=== PATIENT | female | born 1945 | race Two or more races ===

== ENCOUNTER 2022-03-25 18:31 | Emergency (ER) | payer OTHER ==
[~2022-03-25] VITALS: Ht 162.6 cm; Wt 54.4 kg
[2022-03-25 19:29] LABS: Basophils # (auto) 0.1 10 ^3/uL (0-0.2); Basophils % (auto) 1.2 % (0.0-2.0); Eosinophils # (auto) 0.1 10 ^3/uL (0-0.8); Eosinophils % (auto) 2.1 % (0.0-7.0); Hematocrit 34.8 % (36.0-46.0); Hemoglobin 11.7 g/dL (12.2-16.2); Lymphocytes # (auto) 1.8 10 ^3/uL (0.4-5.4); Lymphocytes % (auto) 30.2 % (10.0-50.0); Mean Corpuscular Hemoglobin 28.9 pg (28.0-32.0); Mean Corpuscular Hgb Conc. 33.6 g/dL (32.0-36.0); Mean Corpuscular Volume 85.9 fL (80.0-100.0); Monocytes # (auto) 0.3 10 ^3/uL (0-1.3); Monocytes % (auto) 5.6 % (0.0-12.0); Neutrophils # (auto) 3.6 10 ^3/uL (1.6-8.6); Neutrophils % (auto) 60.9 % (37.0-80.0); Nucleated Red Blood Cells % 0.1 %; Red Blood Cells 4.06 10^6/uL (4.0-5.20); Red Cell Distribution Width 16.6 % (11.8-14.3); White Blood Cell 5.9 10^3/uL (4.4-10.8)
[2022-03-25 19:45] LABS: Urine Bacteria FEW /hpf (None Seen); Urine Blood Negative /uL (Negative); Urine Hyaline Cast MOD /lpf (0 - 2); Urine Specific Gravity 1.009 (1.001-1.035); Urine WBC 4 /hpf (0 - 5)
[2022-03-25 19:52] LABS: Calcium 9.6 mg/dL (8.5-10.1); Potassium 3.8 mmol/L (3.5-5.1)
[2022-03-25 19:55] LABS: BUN/Creatinine Ratio 18.2; Bilirubin, Total 0.8 mg/dL (0.2-1.0); Total Protein 7.6 g/dL (6.4-8.2)
[2022-03-25] MEDS ORDERED: NITR-87 PO (21:16)
[2022-03-25 21:36] VITALS: BP 102/72
== END 2022-03-25 21:57 | disposition home or self-care (01) ==
LOC: EDBD 18:34 → ER 18:34
DX: N39.0 Urinary tract infection, site not specified (principal); E78.5 Hyperlipidemia, unspecified; I10 Essential (primary) hypertension
CPT/HCPCS: 36415; 74176; 80053; 81001; 85025; 93005

== ENCOUNTER 2023-04-01 22:02 | Emergency (ER) | payer MEDICARE, OTHER ==
[~2023-04-01] VITALS: Ht 162.6 cm; Wt 55.0 kg
[~2023-04-01 22:02] MED LIST: NITR-87 PO
[2023-04-02] MEDS ORDERED: methylPREDNISolone SOD SUCC 125 MG/2 ML VL IM ONE (02:00)
[2023-04-02] MEDS ORDERED: PRED30TA4 PO (02:01)
[2023-04-02 02:23] VITALS: BP 122/78
== END 2023-04-02 02:25 | disposition home or self-care (01) ==
LOC: ER 22:08
DX: M10.9 Gout, unspecified (principal); M79.642 Pain in left hand; E78.5 Hyperlipidemia, unspecified; I10 Essential (primary) hypertension; Z88.8 Allergy status to other drugs, medicaments and biological substances
CPT/HCPCS: 96372; 99283; J2930

== ENCOUNTER 2023-05-23 19:51 | Emergency (ER) | payer MEDICARE, OTHER ==
[~2023-05-23] VITALS: Ht 162.6 cm; Wt 53.0 kg
[~2023-05-23 19:51] MED LIST changes: +PRED30TA4 PO
[2023-05-23 20:25] LABS: Basophils # (auto) 0.1 10 ^3/uL (0-0.2); Basophils % (auto) 1.5 % (0.0-2.0); Eosinophils # (auto) 0.1 10 ^3/uL (0-0.8); Eosinophils % (auto) 2.3 % (0.0-7.0); Hematocrit 35.9 % (36.0-46.0); Hemoglobin 11.1 g/dL (12.2-16.2); Lymphocytes # (auto) 1.2 10 ^3/uL (0.4-5.4); Lymphocytes % (auto) 24.7 % (10.0-50.0); Mean Corpuscular Volume 90.3 fL (80.0-100.0); Monocytes # (auto) 0.4 10 ^3/uL (0-1.3); Monocytes % (auto) 9.3 % (0.0-12.0); Neutrophils # (auto) 2.9 10 ^3/uL (1.6-8.6); Neutrophils % (auto) 62.2 % (37.0-80.0); Nucleated Red Blood Cells % 0.3 %; Red Blood Cells 3.98 10^6/uL (4.0-5.20); Red Cell Distribution Width 18.4 % (11.8-14.3); White Blood Cell 4.7 10^3/uL (4.4-10.8)
[2023-05-23 20:40] LABS: INR 3.15 (0.9-1.15); Prothrombin Time 30.7 sec (9.3-11.8)
[2023-05-23 20:48] LABS: Albumin 3.8 g/dL (3.4-5.0); Calcium 9.2 mg/dL (8.5-10.1); Magnesium 2.7 mg/dL (1.6-2.6); Potassium 4.1 mmol/L (3.5-5.1)
[2023-05-23 21:04] LABS: BUN/Creatinine Ratio 19.9 (10.0-20.0); Bilirubin, Total 0.4 mg/dL (0.2-1.0); Total Protein 6.7 g/dL (6.4-8.2)
[2023-05-23] MEDS ORDERED: ACETAMINOPHEN 325 MG TAB PO ONE (22:45)
[2023-05-23] MEDS ORDERED: SODIUM CHLORIDE 0.9% 1,000 ML IV ONE (22:45)
[2023-05-23] MEDS ORDERED: PANTOPRAZOLE 40 MG/10 ML VIAL INJ IV ONE (22:45)
[2023-05-23] MEDS ORDERED: ASPirin 81 mg TAB PO ONE (22:45)
[2023-05-24 00:25] VITALS: BP 140/77; TEMP 97.6
[2023-05-24 00:39] VITALS: PULSE 81; RESP 18; O2SAT 97
[2023-05-24] MEDS ORDERED: NITROGLYCERIN 0.4 MG SL TAB SL ONE (10:00)
== END 2023-05-24 00:48 | disposition home or self-care (01) ==
LOC: ER 19:51
DX: R07.89 Other chest pain (principal); I10 Essential (primary) hypertension; E78.5 Hyperlipidemia, unspecified; Z88.8 Allergy status to other drugs, medicaments and biological substances
CPT/HCPCS: 36415; 71045; 80053; 83735; 83880; 84484; 85025; 85610; 85730; 93005; 96361; 96374; 99285; C9113; J7030

== ENCOUNTER 2023-07-11 13:26 | Inpatient (IN) | payer MEDICARE, OTHER ==
[~2023-07-11] VITALS: Ht 162.6 cm; Wt 59.9 kg
[2023-07-11 13:50] LABS: Basophils # (auto) 0.1 10 ^3/uL (0-0.2); Basophils % (auto) 0.5 % (0.0-2.0); Eosinophils # (auto) 0 10 ^3/uL (0-0.8); Eosinophils % (auto) 0.2 % (0.0-7.0); Hemoglobin 11.7 g/dL (12.2-16.2); Lymphocytes # (auto) 1.6 10 ^3/uL (0.4-5.4); Lymphocytes % (auto) 13.9 % (10.0-50.0); Mean Corpuscular Hemoglobin 28.2 pg (28.0-32.0); Mean Corpuscular Hgb Conc. 31.5 g/dL (32.0-36.0); Mean Corpuscular Volume 89.6 fL (80.0-100.0); Monocytes # (auto) 0.6 10 ^3/uL (0-1.3); Monocytes % (auto) 5.4 % (0.0-12.0); Neutrophils # (auto) 9.3 10 ^3/uL (1.6-8.6); Nucleated Red Blood Cells % 0.1 %; Red Blood Cells 4.13 10^6/uL (4.0-5.20); Red Cell Distribution Width 18.1 % (11.8-14.3); White Blood Cell 11.6 10^3/uL (4.4-10.8)
[2023-07-11 13:55] VITALS: PULSE 96; RESP 16; O2SAT 97
[2023-07-11 13:59] LABS: Carbon Dioxide 26 mmol/L (20-30)
[2023-07-11 14:00] LABS: Calcium 10.1 mg/dL (8.5-10.1)
[2023-07-11 14:04] LABS: Glucose 105 mg/dL (74-106)
[2023-07-11 14:05] LABS: Alkaline Phosphatase 85 U/L (46-116); BUN/Creatinine Ratio 22.9 (10.0-20.0); Blood Urea Nitrogen 25 mg/dL (9-23)
[2023-07-11 14:06] LABS: Alanine Aminotransferase 21 U/L (7-40); Albumin 4.2 g/dL (3.2-4.8); Aspartate Aminotransferase 21 U/L (13-40)
[2023-07-11 14:07] LABS: Bilirubin, Total 0.7 mg/dL (0.2-1.0); Total Protein 6.7 g/dL (5.7-8.2)
[2023-07-11 14:55] LABS: Anion Gap 8 (5-15); Chloride 107 mmol/L (98-107); Potassium 4.4 mmol/L (3.5-5.1); Sodium 141 mmol/L (136-145)
[2023-07-11] MEDS ORDERED: ASPirin 81 mg TAB PO ONE (18:30)
[2023-07-11 18:45] LABS: Urine Bacteria FEW /hpf (None Seen); Urine Blood Negative /uL (Negative); Urine Clarity HAZY (Clear); Urine Color Yellow (Yellow); Urine Mucus FEW (None Seen); Urine Protein, UAD TRACE (Negative); Urine Urobilinogen Normal (Negative); Urine WBC 41 /hpf (0 - 5); Urine pH 5.5 (5.0-8.0)
[2023-07-11] MEDS ORDERED: NITROGLYCERIN 0.4 MG SL TAB SL PRN (19:00)
[2023-07-11] MEDS ORDERED: ACETAMINOPHEN 325 MG TAB PO PRN (19:00)
[2023-07-11] MEDS ORDERED: MORPHINE SULFATE INJ 2 MG/ml SYRG IV PRN (19:00)
[2023-07-11] MEDS ORDERED: ONDANSETRON HCL 4 MG/2 ML VIAL IV PRN (19:00)
[2023-07-11] MEDS ORDERED: HYDROcodone-ACET 5/325MG TAB PO PRN (19:00)
[2023-07-11] MEDS ORDERED: cefTRIAXone 1GM/50ML D5W 50 ML IV ONE (19:00)
[2023-07-11] MEDS ORDERED: FUR20T PO (19:19)
[2023-07-11] MEDS ORDERED: ROSU10TA64 PO (19:19)
[2023-07-11] MEDS ORDERED: WARF-110 PO (19:19)
[2023-07-11] MEDS ORDERED: MET50T PO (19:19)
[2023-07-11] MEDS ORDERED: ALLO100T PO (19:19)
[2023-07-11] MEDS ORDERED: TIOT17SP INH (19:19)
[2023-07-11] MEDS ORDERED: HYDR-4297 PO (19:19)
[2023-07-11] MEDS ORDERED: LISI20TA56 PO (19:19)
[2023-07-11 19:44] VITALS: BP 143/95; PULSE 91; RESP 16; O2SAT 97
[2023-07-11 20:05] VITALS: PULSE 90; RESP 17; O2SAT 97
[2023-07-11 21:15] LABS: Partial Thromboplastin Time 35.5 SEC (24.5-34.5); Prothrombin Time 49.4 sec (9.3-11.8)
[2023-07-11 21:38] LABS: INR 5.24 (0.9-1.15)
[2023-07-11 22:00] VITALS: BP 123/79; PULSE 90; RESP 18; TEMP 98.2; O2SAT 95
[2023-07-11] MEDS: hydrALAZINE HCL 25 MG TAB PO SCH (22:33)
[2023-07-11] MEDS: SODIUM CHLOR 0.9% PF (SALINE LOCK) 10ML VIAL/SYR IV SCH (22:42)
[2023-07-11 23:52] VITALS: O2SAT 97
[2023-07-12] VITALS (12 sets, daily range): BP systolic 100–133; BP diastolic 67–87; PULSE 73–105; RESP 16–18; TEMP 97.4–98.2; O2SAT 93–100
[2023-07-12] MEDS: hydrALAZINE HCL 25 MG TAB PO SCH ×3 (06:03→21:23)
[2023-07-12] MEDS: SODIUM CHLOR 0.9% PF (SALINE LOCK) 10ML VIAL/SYR IV SCH ×3 (06:03→21:22)
[2023-07-12 06:42] LABS: Basophils # (auto) 0.1 10 ^3/uL (0-0.2); Basophils % (auto) 0.9 % (0.0-2.0); Eosinophils # (auto) 0.1 10 ^3/uL (0-0.8); Eosinophils % (auto) 1.6 % (0.0-7.0); Hematocrit 35.9 % (36.0-46.0); Hemoglobin 11.4 g/dL (12.2-16.2); Lymphocytes % (auto) 27.8 % (10.0-50.0); Mean Corpuscular Hemoglobin 28.9 pg (28.0-32.0); Mean Corpuscular Hgb Conc. 31.6 g/dL (32.0-36.0); Mean Corpuscular Volume 91.4 fL (80.0-100.0); Monocytes # (auto) 0.6 10 ^3/uL (0-1.3); Monocytes % (auto) 8.3 % (0.0-12.0); Neutrophils # (auto) 4.4 10 ^3/uL (1.6-8.6); Neutrophils % (auto) 61.4 % (37.0-80.0); Nucleated Red Blood Cells % 0.1 %; Red Blood Cells 3.93 10^6/uL (4.0-5.20); Red Cell Distribution Width 18.2 % (11.8-14.3); White Blood Cell 7.2 10^3/uL (4.4-10.8)
[2023-07-12 06:58] LABS: Alanine Aminotransferase 18 U/L (7-40); Albumin 3.7 g/dL (3.2-4.8); Alkaline Phosphatase 85 U/L (46-116); Anion Gap 8 (5-15); Aspartate Aminotransferase 22 U/L (13-40); BUN/Creatinine Ratio 12.4 (10.0-20.0); Blood Urea Nitrogen 15 mg/dL (9-23); Calcium 9.6 mg/dL (8.7-10.4); Carbon Dioxide 25 mmol/L (20-30); Chloride 108 mmol/L (98-107); Glucose 81 mg/dL (74-106); Potassium 4.2 mmol/L (3.5-5.1); Sodium 141 mmol/L (136-145)
[2023-07-12 06:59] LABS: Bilirubin, Total 0.5 mg/dL (0.2-1.0); Total Protein 6.4 g/dL (5.7-8.2)
[2023-07-12 07:05] LABS: Partial Thromboplastin Time 35.6 SEC (24.5-34.5); Prothrombin Time 42.9 sec (9.3-11.8)
[2023-07-12 07:07] LABS: INR 4.51 (0.9-1.15)
[2023-07-12 09:39] LABS: Triglycerides 91 mg/dL (< 150)
[2023-07-12] MEDS: LISINOPRIL 20 MG TAB PO SCH (09:39)
[2023-07-12] MEDS: ASPirin 81 mg TAB PO SCH (09:39)
[2023-07-12 09:40] LABS: LDL Cholesterol 47 mg/dL (< 100)
[2023-07-12] MEDS: METOPROLOL TARTRATE 50 MG TAB PO SCH (09:40)
[2023-07-12] MEDS: ALLOPURINOL 100 MG TAB PO SCH (09:40)
[2023-07-12] MEDS: FUROSEMIDE 20 MG TAB PO SCH (09:40)
[2023-07-12 09:41] LABS: Cholesterol 131 mg/dL (< 200); HDL Cholesterol 61 mg/dL (40-59)
[2023-07-12] MEDS: IPRATROPIUM BROM 0.5 MG/2.5ML INH SOL NEB SCH ×2 (12:19→18:59)
[2023-07-12] MEDS: ATORVASTATIN 20 MG TAB PO SCH (21:22)
[2023-07-13] VITALS (16 sets, daily range): BP systolic 96–136; BP diastolic 55–86; PULSE 60–101; RESP 14–20; TEMP 97–98.4; O2SAT 93–100
[2023-07-13] MEDS: IPRATROPIUM BROM 0.5 MG/2.5ML INH SOL NEB SCH ×5 (00:20→23:43)
[2023-07-13 05:28] LABS: INR 2.65 (0.9-1.15); Prothrombin Time 26.1 sec (9.3-11.8)
[2023-07-13] MEDS: hydrALAZINE HCL 25 MG TAB PO SCH ×3 (05:34→21:40)
[2023-07-13] MEDS: SODIUM CHLOR 0.9% PF (SALINE LOCK) 10ML VIAL/SYR IV SCH ×3 (05:34→21:38)
[2023-07-13] MEDS: ALLOPURINOL 100 MG TAB PO SCH (09:49)
[2023-07-13] MEDS: FUROSEMIDE 20 MG TAB PO SCH (09:49)
[2023-07-13] MEDS: ASPirin 81 mg TAB PO SCH (09:49)
[2023-07-13] MEDS: LISINOPRIL 20 MG TAB PO SCH (09:51)
[2023-07-13] MEDS: METOPROLOL TARTRATE 50 MG TAB PO SCH (09:51)
[2023-07-13] MEDS ORDERED: WARFARIN SODIUM 2 MG TAB PO ONE (17:00)
[2023-07-13] MEDS: ATORVASTATIN 20 MG TAB PO SCH (21:38)
[2023-07-13] MEDS: DOCUSATE SOD 100 MG CAP PO PRN (21:38)
[2023-07-14] VITALS (16 sets, daily range): BP systolic 104–150; BP diastolic 53–82; PULSE 89–123; RESP 16–20; TEMP 97.8–98.4; O2SAT 94–100
[2023-07-14] MEDS: hydrALAZINE HCL 25 MG TAB PO SCH (06:00)
[2023-07-14] MEDS: SODIUM CHLOR 0.9% PF (SALINE LOCK) 10ML VIAL/SYR IV SCH ×3 (06:06→21:17)
[2023-07-14 06:22] LABS: INR 1.85 (0.9-1.15); Prothrombin Time 18.7 sec (9.3-11.8)
[2023-07-14] MEDS: IPRATROPIUM BROM 0.5 MG/2.5ML INH SOL NEB SCH ×4 (06:52→23:45)
[2023-07-14] MEDS ORDERED: ADENOSINE 49 MG in GIVE UN-DILUTED 0 ML IV STA (07:46)
[2023-07-14] MEDS: FUROSEMIDE 20 MG TAB PO SCH (10:00)
[2023-07-14] MEDS: ASPirin 81 mg TAB PO SCH (10:00)
[2023-07-14] MEDS: LISINOPRIL 20 MG TAB PO SCH (10:00)
[2023-07-14] MEDS: METOPROLOL TARTRATE 50 MG TAB PO SCH (10:00)
[2023-07-14] MEDS: ALLOPURINOL 100 MG TAB PO SCH (10:00)
[2023-07-14] MEDS ORDERED: cefTRIAXone 1GM/50ML D5W 50 ML IV ONE (12:30)
[2023-07-14 13:51] LABS: Chloride 108 mmol/L (98-107); Potassium 3.8 mmol/L (3.5-5.1); Sodium 144 mmol/L (136-145)
[2023-07-14 13:52] LABS: Anion Gap 10 (5-15); Carbon Dioxide 26 mmol/L (20-30)
[2023-07-14 13:53] LABS: Calcium 10.4 mg/dL (8.5-10.1)
[2023-07-14 13:58] LABS: BUN/Creatinine Ratio 13.6 (10.0-20.0); Blood Urea Nitrogen 14 mg/dL (9-23); Glucose 83 mg/dL (74-106)
[2023-07-14] MEDS ORDERED: WARFARIN SODIUM 5 MG TAB PO ONE (17:00)
[2023-07-14] MEDS: ATORVASTATIN 20 MG TAB PO SCH (21:15)
[2023-07-14] MEDS: DOCUSATE SOD 100 MG CAP PO PRN (21:16)
[2023-07-15 05:00] VITALS: BP 147/90; PULSE 112; RESP 20; TEMP 98.2; O2SAT 100
[2023-07-15 05:58] LABS: Anion Gap 5 (5-15); Calcium 9.4 mg/dL (8.7-10.4); Carbon Dioxide 29 mmol/L (20-30); Chloride 108 mmol/L (98-107); Potassium 4.2 mmol/L (3.5-5.1); Sodium 142 mmol/L (136-145)
[2023-07-15 06:03] LABS: Glucose 95 mg/dL (74-106)
[2023-07-15 06:04] LABS: BUN/Creatinine Ratio 14.8 (10.0-20.0); Blood Urea Nitrogen 16 mg/dL (9-23)
[2023-07-15 06:05] LABS: INR 1.78 (0.9-1.15); Partial Thromboplastin Time 28.5 SEC (24.5-34.5)
[2023-07-15 06:08] LABS: Basophils # (auto) 0.1 10 ^3/uL (0-0.2); Basophils % (auto) 1.2 % (0.0-2.0); Eosinophils # (auto) 0.2 10 ^3/uL (0-0.8); Eosinophils % (auto) 2.6 % (0.0-7.0); Hematocrit 32.9 % (36.0-46.0); Hemoglobin 10.8 g/dL (12.2-16.2); Lymphocytes # (auto) 1.6 10 ^3/uL (0.4-5.4); Lymphocytes % (auto) 27.4 % (10.0-50.0); Mean Corpuscular Hemoglobin 28.7 pg (28.0-32.0); Mean Corpuscular Hgb Conc. 32.9 g/dL (32.0-36.0); Mean Corpuscular Volume 87.2 fL (80.0-100.0); Monocytes # (auto) 0.6 10 ^3/uL (0-1.3); Monocytes % (auto) 9.3 % (0.0-12.0); Neutrophils # (auto) 3.6 10 ^3/uL (1.6-8.6); Neutrophils % (auto) 59.5 % (37.0-80.0); Nucleated Red Blood Cells % 0.1 %; Red Blood Cells 3.77 10^6/uL (4.0-5.20); Red Cell Distribution Width 17.2 % (11.8-14.3)
[2023-07-15] MEDS: SODIUM CHLOR 0.9% PF (SALINE LOCK) 10ML VIAL/SYR IV SCH ×2 (06:21→14:47)
[2023-07-15 06:42] VITALS: PULSE 96; RESP 18; O2SAT 99
[2023-07-15] MEDS: IPRATROPIUM BROM 0.5 MG/2.5ML INH SOL NEB SCH ×2 (06:42→12:00)
[2023-07-15 06:49] VITALS: PULSE 102; RESP 18; O2SAT 99
[2023-07-15 08:00] VITALS: PULSE 96
[2023-07-15] MEDS: ASPirin 81 mg TAB PO SCH (08:53)
[2023-07-15] MEDS: METOPROLOL TARTRATE 50 MG TAB PO SCH (08:53)
[2023-07-15] MEDS: ALLOPURINOL 100 MG TAB PO SCH (08:54)
[2023-07-15] MEDS: FUROSEMIDE 20 MG TAB PO SCH (08:56)
[2023-07-15] MEDS: LISINOPRIL 20 MG TAB PO SCH (08:57)
[2023-07-15 09:00] VITALS: BP 116/76; PULSE 103; RESP 17; TEMP 98.5; O2SAT 100
[2023-07-15] MEDS ORDERED: cefTRIAXone 1GM/50ML D5W 50 ML IV SCH (09:00)
[2023-07-15] MEDS ORDERED: CEFU500T43 PO (12:08)
[2023-07-15 13:00] VITALS: BP 111/81; PULSE 69; RESP 17; TEMP 98.3; O2SAT 96
[2023-07-15] MEDS ORDERED: WARFARIN SODIUM 2.5 MG TAB PO ONE (17:00)
== END 2023-07-15 14:44 | disposition home or self-care (01) | DRG 280 ==
LOC: ER 13:26 → EDBD 13:26 → TELE 19:19 → TELE-WESTW 21:28
PROVIDERS: ADMIT Internal Medicine
DX: I16.0 Hypertensive urgency (principal); I21.A1 Myocardial infarction type 2; I50.43 Acute on chronic combined systolic (congestive) and diastolic (congestive) heart failure; I48.20 Chronic atrial fibrillation, unspecified; N39.0 Urinary tract infection, site not specified; I24.9 Acute ischemic heart disease, unspecified; I11.0 Hypertensive heart disease with heart failure; J44.9 Chronic obstructive pulmonary disease, unspecified; E78.5 Hyperlipidemia, unspecified; M10.9 Gout, unspecified; K59.00 Constipation, unspecified; Z88.8 Allergy status to other drugs, medicaments and biological substances; Z95.2 Presence of prosthetic heart valve; Z79.01 Long term (current) use of anticoagulants; Z82.49 Family history of ischemic heart disease and other diseases of the circulatory system; Z83.3 Family history of diabetes mellitus
CPT/HCPCS: 36415; 71045; 78452; 80048; 80053; 80061; 81001; 83036; 83735; 83880; 84443; 84484; 85025; 85610; 85730; 93005; 93017; 93306; 94640; G0378; J0153; J0696

== ENCOUNTER 2023-08-12 09:30 | Emergency (ER) | payer MEDICARE, OTHER ==
[~2023-08-12] VITALS: Ht 162.6 cm; Wt 53.3 kg
[~2023-08-12 09:30] MED LIST changes: +ALLO100T PO; +CEFU500T43 PO; +FUR20T PO; +HYDR-4297 PO; +LISI20TA56 PO; +MET50T PO; -NITR-87 PO; -PRED30TA4 PO; +ROSU10TA64 PO; +TIOT17SP INH; +WARF-110 PO
[2023-08-12 09:59] LABS: Basophils # (auto) 0 10 ^3/uL (0-0.2); Basophils % (auto) 0.8 % (0.0-2.0); Eosinophils # (auto) 0.1 10 ^3/uL (0-0.8); Eosinophils % (auto) 1.7 % (0.0-7.0); Hemoglobin 11.5 g/dL (12.2-16.2); Lymphocytes # (auto) 0.3 10 ^3/uL (0.4-5.4); Lymphocytes % (auto) 5.8 % (10.0-50.0); Mean Corpuscular Hemoglobin 29.2 pg (28.0-32.0); Mean Corpuscular Hgb Conc. 32.9 g/dL (32.0-36.0); Mean Corpuscular Volume 88.9 fL (80.0-100.0); Monocytes # (auto) 0.4 10 ^3/uL (0-1.3); Monocytes % (auto) 7.6 % (0.0-12.0); Neutrophils % (auto) 84.1 % (37.0-80.0); Nucleated Red Blood Cells % 0.1 %; Red Blood Cells 3.93 10^6/uL (4.0-5.20); Red Cell Distribution Width 17.4 % (11.8-14.3); White Blood Cell 4.8 10^3/uL (4.4-10.8)
[2023-08-12] MEDS ORDERED: ASPirin 81 mg TAB PO ONE (10:15)
[2023-08-12 10:20] LABS: Alanine Aminotransferase 23 U/L (7-40); Albumin 4.2 g/dL (3.2-4.8); Alkaline Phosphatase 89 U/L (46-116); Anion Gap 7 (5-15); Aspartate Aminotransferase 31 U/L (13-40); BUN/Creatinine Ratio 17.1 (10.0-20.0); Blood Urea Nitrogen 24 mg/dL (9-23); Calcium 9.8 mg/dL (8.5-10.1); Carbon Dioxide 27 mmol/L (20-30); Chloride 106 mmol/L (98-107); Glucose 104 mg/dL (74-106); Potassium 3.6 mmol/L (3.5-5.1); Sodium 140 mmol/L (136-145)
[2023-08-12 10:21] LABS: Bilirubin, Total 0.9 mg/dL (0.2-1.0); Total Protein 6.5 g/dL (5.7-8.2)
[2023-08-12 10:52] LABS: Partial Thromboplastin Time 42.2 SEC (24.5-34.5)
[2023-08-12] MEDS ORDERED: ONDANSETRON HCL 4 MG/2 ML VIAL IV ONE (11:15)
[2023-08-12] MEDS ORDERED: MORPHINE SULFATE 4 MG/ML SYR/VIAL IV ONE (11:15)
[2023-08-12] MEDS ORDERED: NITROGLYCERIN 2% OINT 1GM PKG TD ONE (11:15)
[2023-08-12 11:38] LABS: INR 4.41 (0.9-1.15)
[2023-08-12] MEDS ORDERED: MAALOX PLUS or MAALOX 30 ML PO ONE (12:15)
[2023-08-12 13:13] VITALS: BP 140/77; TEMP 97.7
[2023-08-12 13:20] VITALS: PULSE 84; RESP 20; O2SAT 98
== END 2023-08-12 14:06 | disposition short-term general hospital (02) ==
LOC: ER 09:30
DX: I24.9 Acute ischemic heart disease, unspecified (principal); R07.89 Other chest pain; I10 Essential (primary) hypertension; J44.9 Chronic obstructive pulmonary disease, unspecified; E78.5 Hyperlipidemia, unspecified; Z88.6 Allergy status to analgesic agent
CPT/HCPCS: 36415; 71046; 80053; 83735; 83880; 84484; 85025; 85610; 85730; 93005